=== PATIENT | female | born 1990 | race Two or more races ===

== ENCOUNTER 2019-02-17 09:35 | Inpatient (IN) | payer OTHER ==
[~2019-02-17] VITALS: Ht 152.4 cm; Wt 3.2 kg
[2019-02-17] MEDS ORDERED: PRENATAL TABLE1 EAC1 (12:39)
== END 2019-02-20 13:41 | disposition home or self-care (01) | DRG 788 ==
LOC: OBS/DEL 09:35 → LDR 12:02 → OBS/DEL 12:02 → LDR 12:46 → OB/GYN 12:46
PROVIDERS: ADMIT Obstetrics & Gynecology
PROC: 4A1HXCZ Monitoring of Products of Conception, Cardiac Rate, External Approach (ICD-10-PCS; 2019-02-17)
PROC: BY4FZZZ Ultrasonography of Third Trimester, Single Fetus (ICD-10-PCS; 2019-02-17)
PROC: 3E033VJ Introduction of Other Hormone into Peripheral Vein, Percutaneous Approach (ICD-10-PCS; 2019-02-17)
PROC: 10D00Z1 Extraction of Products of Conception, Low, Open Approach (ICD-10-PCS; principal; 2019-02-17 19:00)
DX: O82 Encounter for cesarean delivery without indication (principal); O77.0 Labor and delivery complicated by meconium in amniotic fluid; O62.1 Secondary uterine inertia; O61.8 Other failed induction of labor; O76 Abnormality in fetal heart rate and rhythm complicating labor and delivery; Z37.0 Single live birth; Z3A.40 40 weeks gestation of pregnancy